=== PATIENT | male | born 1945 | race Caucasian/White ===

== ENCOUNTER 2022-06-04 06:09 | Day surgery (SDC) | payer OTHER ==
[2022-05-29 17:28] VITALS: BMI 35.2
[2022-06-04] MEDS ORDERED: ERYTHROMYCIN 0.5% OPHTHALMIC OINTMENT 3.5 GM TUBE ONE (07:10)
[2022-06-04] MEDS ORDERED: POVIDONE-IODINE 5% OPHTHALMIC PREP 30 ML SOLUTION ONE (07:10)
[2022-06-04] MEDS ORDERED: TETRACAINE 0.5% OPHTH SOLN 2 ML BOTTLE ONE (07:10)
[2022-06-04] MEDS ORDERED: LIDOCAINE 1%-EPI 1:100,000 30 ML MDV IJ ONE (07:10)
[2022-06-04] MEDS ORDERED: ceFAZolin SODIUM 1 GM VIAL ONE (07:10)
[2022-06-04] MEDS ORDERED: BUPIVACAINE HCL 50 ML ONE (07:10)
[2022-06-04] MEDS ORDERED: MIDAZOLAM HCL 2 MG/2 ML SINGLE DOSE VIAL ONE ×2 (07:36→08:27)
[2022-06-04] MEDS ORDERED: FENTANYL CITRATE/PF 50 MCG/ML VIAL ONE ×2 (07:36→09:47)
[2022-06-04] MEDS ORDERED: PROPOFOL 40 ML ONE ×2 (07:37→07:38)
[2022-06-04] MEDS ORDERED: ONDANSETRON 4 MG/2 ML VIAL IVPUSH PRN (09:40)
[2022-06-04] MEDS ORDERED: oxyCODONE HCL 5 MG TABLET PO PRN (09:40)
[2022-06-04] MEDS ORDERED: LACTATED RINGERS SOLUTION 1,000 ML IV SCH (09:45)
[2022-06-04] MEDS ORDERED: ACETAMINOPHEN INJECTION 100 ML IVPB ONE (09:52)
[2022-06-04] MEDS ORDERED: ACETAMINOPHEN 1000 MG/100 ML BAG IVPB ONE (10:10)
[2022-06-04 10:26] VITALS: RESP 16
[2022-06-04] MEDS ORDERED: oxyCODONE HCL 5 MG TABLET ONE (10:37)
[2022-06-04] MEDS ORDERED: oxyCODONE HCL 5 MG TABLET PO ONE (10:40)
[2022-06-04 10:46] VITALS: TEMP 97.8
[2022-06-04 11:28] VITALS: BP 181/87; PULSE 69
== END 2022-06-04 12:04 | disposition home or self-care (01) ==
LOC: FASU 06:09
PROVIDERS: ATTEND Ophthalmology
PROC: 0KX10ZZ Transfer Facial Muscle, Open Approach (ICD-10-PCS; 2022-06-04)
PROC: 08SR0ZZ Reposition Left Lower Eyelid, Open Approach (ICD-10-PCS; principal; 2022-06-04 08:13)
DX: C44.1192 Basal cell carcinoma of skin of left lower eyelid, including canthus (principal)
CPT/HCPCS: 94760